=== PATIENT | female | born 1955 ===

== ENCOUNTER 2018-10-24 08:00 | Inpatient (IN) | payer OTHER ==
[~2018-10-24] VITALS: Ht 167.6 cm; Wt 96.2 kg
[2018-10-24] MEDS ORDERED: GABAPENTIN300 MG PO (08:43)
[2018-10-24] MEDS ORDERED: LEVOTHYROXINE25 MCG PO (08:43)
[2018-10-24] MEDS ORDERED: TIZANIDINE HCL4 M1 PO (08:44)
[2018-10-24] MEDS ORDERED: FAMOTIDINE40 MG PO (08:44)
[2018-11-02] MEDS ORDERED: ELIQUIS2.5 MG PO (15:36)
== END 2018-11-02 17:52 | DRG 470 ==
LOC: O/R 08:00 → SURG 10-31 05:20 → O/R 10-31 05:20 → SURH 10-31 08:00 → SURG 10-31 15:18
PROVIDERS: ADMIT Orthopaedic Surgery
PROC: 0MNN0ZZ Release Right Knee Bursa and Ligament, Open Approach (ICD-10-PCS; 2018-10-31)
PROC: 0SRC0J9 Replacement of Right Knee Joint with Synthetic Substitute, Cemented, Open Approach (ICD-10-PCS; principal; 2018-10-31 15:15)
DX: M17.11 Unilateral primary osteoarthritis, right knee (principal); M80.00XA Age-related osteoporosis with current pathological fracture, unspecified site, initial encounter for fracture; M22.11 Recurrent subluxation of patella, right knee; E66.09 Other obesity due to excess calories

== ENCOUNTER 2021-10-29 07:00 | Inpatient (IN) | payer OTHER ==
[~2021-10-29] VITALS: Ht 167.6 cm; Wt 94.3 kg
[~2021-10-29 07:00] MED LIST: ELIQUIS2.5 MG PO; FAMOTIDINE40 MG PO; GABAPENTIN300 MG PO; LEVOTHYROXINE25 MCG PO; TIZANIDINE HCL4 M1 PO
[2021-10-29] MEDS ORDERED: METFORMIN HCL500 M3 PO (08:13)
[2021-11-05] MEDS ORDERED: DICLOFENAC POTA50 MG (11:22)
[2021-11-05] MEDS ORDERED: MAXIMUM D3325 MCG (11:22)
[2021-11-05] MEDS ORDERED: GAS RELIEF125 MG (11:22)
[2021-11-05] MEDS ORDERED: ADVIL200 M1 (11:23)
[2021-11-05] MEDS ORDERED: ELIQUIS2.5 MG PO (17:07)
[2021-11-05] MEDS ORDERED: CEFADROXIL500 MG PO (17:07)
[2021-11-05] MEDS ORDERED: ACETAMINOPHEN-1 EAC2 PO (17:07)
== END 2021-11-05 19:58 | DRG 470 ==
LOC: O/R 11-03 05:26 → SURG 11-03 05:26
PROVIDERS: ADMIT Orthopaedic Surgery; ATTEND Orthopaedic Surgery
PROC: 0SRD0J9 Replacement of Left Knee Joint with Synthetic Substitute, Cemented, Open Approach (ICD-10-PCS; principal; 2021-11-03 10:00)
DX: M17.12 Unilateral primary osteoarthritis, left knee (principal); D62 Acute posthemorrhagic anemia; M22.12 Recurrent subluxation of patella, left knee; E03.9 Hypothyroidism, unspecified; Z96.652 Presence of left artificial knee joint; E11.9 Type 2 diabetes mellitus without complications; E66.9 Obesity, unspecified; Z20.822 Contact with and (suspected) exposure to COVID-19